=== PATIENT | female | born 1995 | race Caucasian/White ===

== ENCOUNTER 2017-08-15 16:41 | Emergency (ER) | END 2017-08-16 00:35 | disposition left against medical advice (07) ==

== ENCOUNTER 2017-08-16 10:47 | Emergency (ER) | END 2017-08-16 14:40 | disposition home or self-care (01) ==

== ENCOUNTER 2018-04-08 10:19 | Inpatient (IN) | END 2018-04-11 12:50 | disposition home or self-care (01) | DRG 775 ==